=== PATIENT | female | born 1945 | race Caucasian/White ===

== ENCOUNTER 2016-07-05 08:53 | Emergency (ER) | payer OTHER ==
[~2016-07-05] VITALS: Ht 157.5 cm; Wt 88.3 kg
[~2016-07-05 08:53] MED LIST: CHOL100010 PO; HYDR12.56 PO; METO1TAB31 PO; PRAV20TA PO; PRLSR20 PO; PROM25TA9 PO
[2016-07-05 08:58] VITALS: TEMP 37.1; Ht 157.5 cm; Wt 88.3 kg
[2016-07-05] MEDS ORDERED: MoRPHine SULFATE 4 MG/ML 1 ML CARP\\VIAL IV STA (09:21)
[2016-07-05] MEDS ORDERED: PROMETHAZINE HCL INJ 12.5 MG in SODIUM CHLORIDE 0.9% 50ML 50 ML IV STA (09:21)
[2016-07-05] MEDS ORDERED: SODIUM CHLORIDE 0.9% 1000ML 1,000 ML IV STA (09:21)
[2016-07-05] MEDS ORDERED: CHOL20009 PO (09:23)
--- NOTE | 2016-07-05 09:41 | EMERGENCY ROOM VISIT NOTE ---
History Report prepared by Sheng: Marnie Sosa Under the Supervision of: Dr. Yulissa Perez M.D. First contact with patient: 09:11 Chief Complaint: KIDNEY STONE Stated Complaint: KIDNEY STONE,PRESSURE History of Present Illness The patient is a 70 year old female who presents to the Emergency Room with complaints of persistent right flank pain that began this morning about 6 hours ago. The pain woke her up from her sleep. She reports one episode of vomiting this morning. She is unsure if she had a fever. The patient has a history of kidney stones and states that her current pain feels similar to previous kidney stones. She has been seen by Dr. Doe in the past. The patient has a history of a cholecystectomy. Denies dysuria or other complaints. Source of History: patient Onset: 6 hours ago Position: other (right flank) Timing: other (persistent) Associated Symptoms: + vomiting Review of Systems See HPI for pertinent positives & negatives. A total of 10 systems reviewed and were otherwise negative. Past Medical & Surgical Medical Problems: (1) Calculus of kidney and ureter (2) Diverticulitis (3) History of adenomatous polyp of colon (4) HTN (hypertension) (5) s/p cholecystectomy (6) s/p colonoscopy (7) s/p L ureteroscopic laser lithotripsy + stent Family History FH: cancer FHx: gallbladder disease Hypertension Kidney stones Social History Smoking Status: Never Smoker Alcohol Use: none Drug Use: none Marital Status: Housing Status: lives with significant other Occupation Status: retired Current/Historical Medications Scheduled Cefdinir (Omnicef), 300 MG PO Q12H Cholecalciferol (Vitamin D), 2,000 UNITS PO DAILY Metoprolol Succinate (Toprol Xl), 25 MG PO BID Omeprazole (Prilosec), 20 MG PO DAILY Pravastatin (Pravachol ), 20 MG PO QPM Allergies Coded Allergies: PABA Derivatives (Verified Allergy, Unknown, IN SUNTAN LOTIONS, 02/03/16) Amoxicillin (Verified Adverse Reaction, Unknown, ABD CRAMPS., 02/03/16) get yeast infection if takes too high a dose. This is not a true allergy. Ondansetron (Verified Adverse Reaction, Unknown, ineffective, increased n/ v, 02/03/16) Physical Exam Vital Signs Date Time Temp Pulse Resp B/P Pulse Ox O2 Delivery O2 Flow Rate FiO2 3/17/17 14:03 93 18 146/101 98 Room Air 07/05/16 12:15 94 18 147/91 96 Room Air 07/05/16 10:55 85 18 153/87 94 Room Air 07/05/16 10:01 84 07/05/16 08:58 37.1 110 20 139/96 95 Room Air Physical Exam Vital signs reviewed. General: Elderly, generally well-appearing 70 year old female, in no significant distress. HEENT: No scleral icterus, PERRLA, neck supple. Atraumatic. Cardiovascular: Regular rate and rhythm, no extra sounds. Pulmonary: Clear to auscultation bilaterally, normal work of breathing. Abdomen: Soft, minimal right upper abdominal discomfort, no rebound, no guarding , nondistended, positive bowel sounds. Musculoskeletal: Atraumatic, no peripheral edema, right sided CVA tenderness. Neurologic: Patient awake alert and oriented x 3 Skin: Warm, dry, no rash Medical Decision & Procedures ER Provider Diagnostic Interpretation: Radiology results as stated below per my review and radiologist interpretation: RENAL ULTRASOUND CLINICAL HISTORY: Right flank pain. COMPARISON STUDY: CT of the abdomen and pelvis April 27, 2013 and renal ultrasound and KUB September 06, 2014. TECHNIQUE: Sonography of the kidneys and the urinary bladder was performed. FINDINGS: The right kidney measures 9.6 x 4.8 x 5.1 cm and the left measures 10.3 x 5.3 x 5.7 cm. There is no hydronephrosis. There are suspected small bilateral renal calculi. There is mild renal cortical thinning. Both ureteral jets were visualized. IMPRESSION: 1. No hydronephrosis. 2. Small bilateral renal calculi. Electronically signed by: Yogi Allison M.D. 07/05/2016 10:39 AM Dictated Date/Time: 07/05/2016 10:38 AM KUB CLINICAL HISTORY: Right flank pain. History of kidney stones. COMPARISON STUDY: KUB September 06, [address] of the abdomen and pelvis September. FINDINGS: There are small bilateral renal calculi. Pelvic calcifications are unchanged and likely reflect phleboliths and vascular calcifications. No ureteral calculi are identified. Bowel gas pattern is normal. There are cholecystectomy clips. IMPRESSION: Bilateral nephrolithiasis. No ureteral calculi identified. Electronically signed by: Yogi Allison M.D. 07/05/2016 10:49 AM Dictated Date/Time: 07/05/2016 10:45 AM Laboratory Results 07/05/16 09:15 Red Blood Count 5.01, Mean Corpuscular Volume 87.6, Mean Corpuscular Hemoglobin 30.5, Mean Corpuscular Hemoglobin Concent 34.9, Mean Platelet Volume 10.5, Neutrophils (%) (Auto) 78.2, Lymphocytes (%) (Auto) 14.2, Monocytes (%) (Auto) 6.5, Eosinophils (%) (Auto) 0.8, Basophils (%) (Auto) 0.2, Neutrophils # (Auto) 10.65, Lymphocytes # (Auto) 1.94, Monocytes # (Auto) 0.89, Eosinophils # (Auto) 0.11, Basophils # (Auto) 0.03 07/05/16 09:15 Test 07/05/16 09:06 07/05/16 09:15 Urine Color YELLOW Urine Appearance CLEAR (CLEAR) Urine pH 7.0 (4.5-7.5) Urine Specific [place] 1.012 (1.000-1.030) Urine Protein NEG (NEG) Urine Glucose (UA) NEG (NEG) Urine Ketones NEG (NEG) Urine Occult Blood 3+ (NEG) Urine Nitrite POS (NEG) Urine Bilirubin NEG (NEG) Urine Urobilinogen NEG (NEG) Urine Leukocyte Esterase MODERATE (NEG) Urine WBC (Auto) 10-30 /hpf (0-5) Urine RBC (Auto) 10-30 /hpf (0-4) Urine Hyaline Casts (Auto) 1-5 /lpf (0-5) Urine Epithelial Cells (Auto) >30 /lpf (0-5) Urine Bacteria (Auto) 4+ (NEG) White Blood Count 13.64 K/uL (4.8-10.8) Red Blood Count 5.01 M/uL (4.2-5.4) Hemoglobin 15.3 g/dL (12.0-16.0) Hematocrit 43.9 % (37-47) Mean Corpuscular Volume 87.6 fL (80-100) Mean Corpuscular Hemoglobin 30.5 pg (25-34) Mean Corpuscular Hemoglobin Concent 34.9 g/dl (32-36) Platelet Count 218 K/uL (130-400) Mean Platelet Volume 10.5 fL (7.4-10.4) Neutrophils (%) (Auto) 78.2 % Lymphocytes (%) (Auto) 14.2 % Monocytes (%) (Auto) 6.5 % Eosinophils (%) (Auto) 0.8 % Basophils (%) (Auto) 0.2 % Neutrophils # (Auto) 10.65 K/uL (1.4-6.5) Lymphocytes # (Auto) 1.94 K/uL (1.2-3.4) Monocytes # (Auto) 0.89 K/uL (0.11-0.59) Eosinophils # (Auto) 0.11 K/uL (0-0.5) Basophils # (Auto) 0.03 K/uL (0-0.2) RDW Standard Deviation 45.5 fL (36.4-46.3) RDW Coefficient of Variation 14.2 % (11.5-14.5) Immature Granulocyte % (Auto) 0.1 % Immature Granulocyte # (Auto) 0.02 K/uL (0.00-0.02) Anion Gap 10.0 mmol/L (3-11) Est Creatinine Clear Calc Drug Dose 63.7 ml/min Estimated GFR () 79.9 Estimated GFR (Non- 68.9 BUN/Creatinine Ratio 13.0 (10-20) Calcium Level 9.3 mg/dl (8.5-10.1) Total Bilirubin 0.9 mg/dl (0.2-1) Direct Bilirubin 0.1 mg/dl (0-0.2) Aspartate Amino Transf (AST/SGOT) 17 U/L (15-37) Alanine Aminotransferase (ALT/SGPT) 26 U/L (12-78) Alkaline Phosphatase 103 U/L (45-117) Total Protein 7.7 gm/dl (6.4-8.2) Albumin 3.7 gm/dl (3.4-5.0) Laboratory results per my review. Medications Administered Medications (Trade) Dose Ordered Sig/Sadie Route Start Time Stop Time Status Last Admin Dose Admin Promethazine HCl/ Sodium Chloride (Phenergan Inj/ Nss 50ml) 50.5 ml @ 204 mls/hr NOW STAT IV 07/05/16 09:21 07/05/16 09:35 DC 07/05/16 09:38 204 MLS/HR Morphine Sulfate 4 mg 4 mg NOW STAT IV 07/05/16 09:21 07/05/16 09:22 DC 07/05/16 09:38 4 MG Sodium Chloride (Nss 1000ml) 1,000 ml @ 150 mls/hr Q6H40M STAT IV 07/05/16 09:21 07/05/16 16:00 DC 07/05/16 09:38 150 MLS/HR Ceftriaxone Sodium (Rocephin Inj) 1 gm NOW STAT IV 07/05/16 11:10 07/05/16 11:12 DC 07/05/16 11:43 1 GM ED Course 0914: Past medical records reviewed. The patient was evaluated in room A12. A complete history and physical examination was performed. 0921: Ordered NSS 1000 ml @ 150 mls/hr IV, Morphine Sulfate 4 mg IV, Promethazine HCl 12.5 mg/NSS 50.5 ml @ 204 mls/hr IV. 1110: Ordered Rocephin Inj 1 gm IV. 1250: Upon reevaluation, the patient appeared to have improvement of her symptoms. I discussed findings with the patient. She verbalized agreement of the treatment plan. The patient was discharged home. Medical Decision Differential diagnosis: Etiologies such as renal colic, appendicitis, diverticulitis, mesenteric ischemia, aortic pathology, infections, inflammatory bowel disease, PUD, biliary pathology, UTI, as well as others were entertained. This patient was evaluated and appeared to be in no significant distress. IV access was obtained and laboratory work was drawn. The patient was placed on the assistant softball coach and found to be in a normal sinus rhythm. KUB and ultrasound were performed. The findings are as above. There is no evidence of renal calculus, urinalysis is concerning for infection. Patient is likely suffering from a pyelonephritis. She was given 1 g of IV ceftriaxone. The patient will be continued on Omnicef 300 mg twice daily for 7 days. She will follow-up with her physician this week for reevaluation and return to the ER for worsening of symptoms or any medical concerns. Impression Primary Impression: Pyelonephritis Scribe Attestation The scribe's documentation has been prepared under my direction and personally reviewed by me in its entirety. I confirm that the note above accurately reflects all work, treatment, procedures, and medical decision making performed by me. Departure Information Dispostion Home / Self-Care Prescriptions Cefdinir (Omnicef) 300 Mg Cap 300 MG PO Q12H for 10 Days, #20 CAP Prov: Yulissa Perez M.D. 07/05/16 Referrals Freddy Whitney M.D.([facility]) (PCP) Patient Instructions My [facility] Additional Instructions Diagnosis: Pyelonephritis Omnicef 300 mg twice daily for 10 days. Tylenol 650 mg every 6 hours as needed for pain or fever. Ibuprofen 600 mg every 6 hours as needed for pain or fever. Drink plenty of clear fluids. Return to the ER for worsening symptoms or any medical concerns.
[2016-07-05 09:42] LABS: BASO % 0.2 %; BASO ABS # 0.03 K/uL (0-0.2); COMPLETE YES; EOS % 0.8 %; HEMATOCRIT 43.9 % (37-47); IG% 0.1 %; LYMPH % 14.2 %; LYMPH ABS # 1.94 K/uL (1.2-3.4); MEAN CELL VOLUME 87.6 fL (80-100); MEAN CORPUSCULAR HEMOGLOBIN 30.5 pg (25-34); MEAN CORPUSCULAR HGB CONC 34.9 g/dl (32-36); MEAN PLATELET VOLUME 10.5 fL (7.4-10.4); MONO % 6.5 %; NEUT % 78.2 %; PLATELET COUNT 218 K/uL (130-400); RED BLOOD COUNT 5.01 M/uL (4.2-5.4); WHITE BLOOD COUNT 13.64 K/uL (4.8-10.8)
[2016-07-05 09:53] LABS: URINE APPEARANCE CLEAR (CLEAR); URINE BILIRUBIN NEG (NEG); URINE COLOR YELLOW; URINE EPITHELIAL CELL AUTO >30 /lpf (0-5); URINE NITRITE POS (NEG); URINE SPECIFIC GRAVITY 1.012 (1.000-1.030); UROBILINOGEN NEG (NEG); ZZUR CULT IF INDIC CLEAN CATCH YES
[2016-07-05 09:57] LABS: MANUAL MICROSCOPIC REQUIRED? NO; REVIEW REQ? NO
[2016-07-05 09:59] LABS: CALCIUM 9.3 mg/dl (8.5-10.1); CREATININE 0.86 mg/dl (0.60-1.20); POTASSIUM 3.7 mmol/L (3.5-5.1)
--- NOTE | 2016-07-05 10:40 | DIAGNOSTIC IMAGING REPORT ---
RENAL ULTRASOUND CLINICAL HISTORY: Right flank pain. COMPARISON STUDY: CT of the abdomen and pelvis April 27, 2013 and renal ultrasound and KUB September 06, 2014. TECHNIQUE: Sonography of the kidneys and the urinary bladder was performed. FINDINGS: The right kidney measures 9.6 x 4.8 x 5.1 cm and the left measures 10.3 x 5.3 x 5.7 cm. There is no hydronephrosis. There are suspected small bilateral renal calculi. There is mild renal cortical thinning. Both ureteral jets were visualized. IMPRESSION: 1. No hydronephrosis. 2. Small bilateral renal calculi. Electronically signed by: Yogi Allison M.D. 07/05/2016 10:39 AM Dictated Date/Time: 07/05/2016 10:38 AM
--- NOTE | 2016-07-05 10:50 | DIAGNOSTIC IMAGING REPORT ---
KUB CLINICAL HISTORY: Right flank pain. History of kidney stones. COMPARISON STUDY: KUB September 06, [address] of the abdomen and pelvis September. FINDINGS: There are small bilateral renal calculi. Pelvic calcifications are unchanged and likely reflect phleboliths and vascular calcifications. No ureteral calculi are identified. Bowel gas pattern is normal. There are cholecystectomy clips. IMPRESSION: Bilateral nephrolithiasis. No ureteral calculi identified. Electronically signed by: Yogi Allison M.D. 07/05/2016 10:49 AM Dictated Date/Time: 07/05/2016 10:45 AM
[2016-07-05] MEDS ORDERED: CEFTRIAXONE SOD INJ 1 GM ADDVIAL IV STA (11:10)
[2016-07-05] MEDS ORDERED: CEFD1CAP14 PO (13:00)
[2016-07-05 14:03] VITALS: BP 146/101; PULSE 93; O2SAT 98
== END 2016-07-05 14:15 | disposition home or self-care (01) ==
LOC: C.EDB 08:55 → C.EDA 14:15
DX: N12 Tubulo-interstitial nephritis, not specified as acute or chronic (principal); Z87.442 Personal history of urinary calculi; K57.92 Diverticulitis of intestine, part unspecified, without perforation or abscess without bleeding; Z86.010 Personal history of colon polyps; I10 Essential (primary) hypertension; Z80.9 Family history of malignant neoplasm, unspecified; Z83.79 Family history of other diseases of the digestive system; Z82.49 Family history of ischemic heart disease and other diseases of the circulatory system; Z84.1 Family history of disorders of kidney and ureter; Z79.899 Other long term (current) drug therapy

== ENCOUNTER 2018-12-04 12:00 | Inpatient (IN) ==
[2018-12-04] MEDS ORDERED: MoRPHine SULFATE 4 MG/ML 1 ML CARP\\VIAL IV PRN (12:48)
[2018-12-04 12:57] LABS: Basophils # (auto) 0.02 K/uL (0-0.2); Basophils % (auto) 0.2 %; Eosinophils # (auto) 0.04 K/uL (0-0.5); Eosinophils % (auto) 0.5 %; Hematocrit (blood only) 42.6 % (37-47); Hemoglobin 14.5 g/dL (12.0-16.0); Immature Granulocytes # (auto) 0.04 K/uL (0.00-0.02); Immature Granulocytes % (auto) 0.5 %; Lymphocytes # (auto) 1.53 K/uL (1.2-3.4); Lymphocytes % (auto) 17.7 %; Mean Corpuscular Volume 86.4 fL (80-100); Mean Platelet Volume 10.4 fL (7.4-10.4); Monocytes # (auto) 0.41 K/uL (0.11-0.59); Monocytes % (auto) 4.7 %; Neutrophils # (auto) 6.61 K/uL (1.4-6.5); Neutrophils % (auto) 76.4 %; Platelet Count 206 K/uL (130-400); RDW Coefficient of Variation 13.8 % (11.5-14.5); RDW Standard Deviation 43.4 fL (36.4-46.3); Red Blood Count 4.93 M/uL (4.2-5.4); White Blood Count 8.65 K/uL (4.8-10.8)
[2018-12-04] MEDS ORDERED: PATIENT'S HEIGHT AND/OR WEIGHT NEEDED SCH (13:00)
[2018-12-04 13:07] LABS: Prothrombin Time 10.4 Seconds (9.0-12.0)
[2018-12-04 13:18] LABS: Albumin Level 3.5 gm/dl (3.4-5.0); Creatinine Clr Calc Pharmacy 59.7 ml/min; Est GFR (African American) 68.1; Est GFR (Non-African American) 58.8; Potassium 3.3 mmol/L (3.5-5.1)
[2018-12-04 13:21] LABS: Albumin Globulin Ratio 0.9 (0.9-2); Bilirubin,Total 0.7 mg/dl (0.2-1); Phosphorus 1.7 mg/dl (2.5-4.9); Total Protein 7.5 gm/dl (6.4-8.2)
[2018-12-04] MEDS ORDERED: POTASSIUM PHOS 3 MMOL/1 ML INFUSION IV STA (13:24)
[2018-12-04] MEDS ORDERED: NYSTATIN/TRIAMCIN CR 15 GM TUBE EXT PRN (13:38)
[2018-12-04] MEDS: PROCHLORPERAZINE 5 MG in SYRINGE 4 ML IV PRN (13:48)
[2018-12-04] MEDS: ENOXAPARIN INJ 40 MG/0.4 ML SYR SQ SCH (13:50)
[2018-12-04] MEDS: CIPROFLOXACIN 400 MG/200 ML BAG IV SCH (13:58)
[2018-12-04] MEDS: metroNIDAZOLE 500 MG/100 ML BAG IV SCH ×2 (13:58→21:45)
[2018-12-04] MEDS ORDERED: POTASSIUM PHOSPHATE IV ONE (14:00)
[2018-12-04] MEDS ORDERED: SODIUM CHLORIDE 0.9% IV ONE (14:00)
[2018-12-04] MEDS ORDERED: POTASSIUM CHLORIDE 20 MEQ TABCR PO ONE (14:00)
--- NOTE | 2018-12-04 15:13 | History & Physical Report ---
Date of Service December 04, 2018 Assessment & Plan (1) Diverticulitis: -Patient directly admitted to [facility] from PCPs office -Was seen in the ED on 12/02 and diagnosed with acute sigmoid diverticulitis; was discharged home on oral Cipro and Flagyl, pain medication, nausea medication -Patient presented to PCP today with reports of intractable nausea and vomiting -History of diverticulitis in the past in 2013, 10/2017 -Colonoscopy 12/2017-diverticulosis in the sigmoid colon -will place patient on IV Cipro and Flagyl -Currently afebrile, no leukocytosis; does not appear septic -Patient reports abdominal pain has been improving and given that she is afebrile without leukocytosis, will hold on repeating CT scan for now -Continue supportive care with IVF, PRN pain and nausea medications -Follow-up outpatient colonoscopy in 6 to 8 weeks (discussed with EVERTON Polk who will arrange) (2) Hypokalemia: (3) Hypophosphatemia: -K+ 3.3, phosphorus 1.7 -Likely due to GI losses -Replace, follow electrolytes (4) HTN (hypertension): -BP mildly elevated, likely situational and due to missed a.m. medications -Continue home dose of metoprolol, making adjustments as needed (5) Dyslipidemia: -Continue statin (6) GERD (gastroesophageal reflux disease): -Continue PPI (7) DVT prophylaxis: -SQ Lovenox History of Present Illness Chief Complaint: Abdominal pain, nausea, vomiting Primary Care Provider: Gustavo Ding MD 72-year-old female who was sent as a direct admission by referral of her PCPs office for evaluation of abdominal pain, nausea, vomiting. Patient was seen in the ED on 12/02 and diagnosed with uncomplicated acute sigmoid diverticulitis. Patient was discharged home on oral Flagyl, Cipro, Phenergan, oxycodone. Patient reports that since returning home, she has had persistent nausea and vomiting. She reports several episodes of vomiting last evening. She denies any hematemesis or coffee-ground emesis. Left lower quadrant pain has actually improved. Patient reports she had chills and rigors however did not take her temperature. She denies chest pain shortness of breath. No lightheadedness, dizziness, diaphoresis, syncopal events. She denies any urinary symptoms. When patient presented to her PCPs office today, she reports that in the past when she has had diverticulitis she has required inpatient treatment. Given the persistent nausea and vomiting, patient was referred for direct admission. At the time my exam, patient is resting in bed in no acute distress. Allergies Allergy/AdvReac Type Severity Reaction Status Date / Time metoclopramide AdvReac Severe Back Pain Verified 12/02/18 05:24 amoxicillin AdvReac Intermediate ABD CRAMPS. Verified 12/02/18 05:24 ondansetron AdvReac Mild ineffective, Verified 12/02/18 05:24 increased n/v PABA Derivatives Allergy Intermediate FACIAL Uncoded 12/02/18 05:24 SWELLING Home Medications Home Medications Medication Instructions Recorded Confirmed Type cholecalciferol (vitamin D3) 2,000 unit PO QAM 07/31/18 12/04/18 History [Vitamin D3] lorazepam 0.5 mg PO UD PRN 07/31/18 12/04/18 History metoprolol succinate 25 mg PO BID 07/31/18 12/04/18 History omeprazole 20 mg PO QAM 07/31/18 12/04/18 History pravastatin 20 mg PO HS 07/31/18 12/04/18 History ciprofloxacin HCl [Cipro] 500 mg PO BID #20 tab 12/02/18 12/04/18 Rx metronidazole [Flagyl] 500 mg PO TID #30 tab 12/02/18 12/04/18 Rx oxycodone 5 mg PO Q6H PRN #12 tab 12/02/18 12/04/18 Rx promethazine 25 mg PO Q6H PRN #20 tab 12/02/18 12/04/18 Rx meclizine 25 mg PO DAILY PRN 12/04/18 12/04/18 History nystatin-triamcinolone 1 applic TOPICAL BID PRN 12/04/18 12/04/18 History Past Med/Surg History Medical History Diverticulosis (Chronic) BPPV (benign paroxysmal positional vertigo) (Chronic) GERD (gastroesophageal reflux disease) (Chronic) Dyslipidemia (Chronic) HTN (hypertension) (Chronic) Osteoporosis (Chronic) History of kidney stones (Chronic) "S/p multiple stents, most recently left ureteral stent placement in August 2017" Surgical History S/P cholecystectomy (Resolved Unknown) Family History Father Pancreatic cancer Social History Preferred Language: Kosovan Communication Ability: Effective Woods Overseer Required: No Beliefs That Will Affect Care: None Current Living Situation: Spouse Other Information That Helps Us Care for You: No Feels Safe at Home: Yes Safety Concerns: Feels Safe At This Time Smoking Status: Never smoker Second Hand Exposure: No ; Hx Alcohol Use: No Hx Substance Use: No Review of Systems Review of Systems: ROS per HPI, all other systems reviewed and negative Physical Exam Constitutional: WD/WN, vitals as above Eyes: PERRL, conjunctivae normal, anicteric sclerae ENMT: external ear and nose normal, oropharynx normal Respiratory: normal respiratory effort, lungs clear to auscultation Cardiovascular: Rate/Rhythm: regular rate and regular rhythm Vessels: normal peripheral pulses Extremities: no edema Gastrointestinal (Abdomen): Inspection/Auscultation: normal bowel sounds; abdomen not distended Percussion/Palpation: + abdomen tender (LLQ) and abdomen soft; no hepatosplenomegaly Musculoskeletal: no cyanosis or clubbing, extremities motor strength 5/5 Skin: no rashes, warm and dry Neurologic: PERRL, EOMI, accommodation nl, no face palsy, no dysarthria Psychiatric: A+Ox3, euthymic affect Results & Data Vital Signs (Past 12 Hours) Vital Signs Temp Pulse Resp BP Pulse Ox 12/04/18 12:33 36.7 C 99 H 16 164/93 H 93 Laboratory Results Short CBC 12/04/18 Range/Units 12:37 WBC 8.65 (4.8-10.8) K/uL Hgb 14.5 (12.0-16.0) g/dL Hct 42.6 (37-47) % Plt Count 206 (130-400) K/uL BMP 12/04/18 12:37 Sodium 141 Potassium 3.3 L Chloride 108 H Carbon Dioxide 26 BUN 9 Creatinine 0.97 Glucose 112 H Calcium 9.0 Liver Function 12/04/18 Range/Units 12:37 Total Bilirubin 0.7 (0.2-1) mg/dl AST 17 (15-37) U/L ALT 21 (12-78) U/L Alkaline Phosphatase 98 (45-117) U/L Albumin 3.5 (3.4-5.0) gm/dl Diagnostic Findings CT ABD/PELVIS IMPRESSION (12/02/2018): 1. Acute diverticulitis at the descending sigmoid colonic junction 2. No evidence of bowel obstruction. No evidence of free air 3. Bilateral nephrolithiasis. No ureteral calculi identified. 4. Droplet of gas in the bladder, possibly iatrogenic. Please correlate with any history of recent instrumentation. Code Status & VTE Plan VTE Prophylaxis Plan VTE Prophylaxis will be ordered: Yes Supervising Physician Co-Signing Physician Notes Attending addendum: The patient was seen and examined in medical floor She is here with failed outpatient treatment for acute diverticulitis Repeat CT of the abdomen did show diverticulitis involving the descending and sigmoid colon junction, no evidence of abscess He has been feeling better today and she tolerated Denies any fever and On examination Lying in bed comfortably Hemodynamically stable with blood pressure on the upper side systolic 152 diastolic 88 Chest-clear to auscultate bilaterally Heart-S1-S2, regular Abdomen-soft, tender left lower quadrant, no guarding and rigidity, mostly present Extremities-negative for any edema Admission labs and imaging studies reviewed Has acute diverticulitis Has been started on intravenous Cipro and Flagyl Agree with assessment as outlined above by Aggie Sykes
[2018-12-04] MEDS: OXYCODONE HCL IR 5 MG TAB (IMMEDIATE RELEASE) PO PRN (15:36)
[2018-12-04] MEDS: METOPROLOL SUCC 25MG EXT REL TAB PO SCH (20:05)
[2018-12-04] MEDS: PRAVASTATIN SOD 20 MG TAB PO SCH (20:48)
[2018-12-04] MEDS: SODIUM CHLORIDE 0.9% 1000ML 1,000 ML IV SCH (21:43)
[2018-12-05] MEDS: ACETAMINOPHEN 325 MG TAB PO PRN ×2 (01:44→17:35)
[2018-12-05] MEDS: CIPROFLOXACIN 400 MG/200 ML BAG IV SCH ×2 (03:00→14:20)
[2018-12-05] MEDS: metroNIDAZOLE 500 MG/100 ML BAG IV SCH ×2 (05:13→14:14)
[2018-12-05 06:17] LABS: Hematocrit (blood only) 35.7 % (37-47); Mean Corpuscular Hgb Conc 33.6 g/dL (32-36); Mean Corpuscular Volume 87.9 fL (80-100); Mean Platelet Volume 10.5 fL (7.4-10.4); Platelet Count 196 K/uL (130-400); RDW Coefficient of Variation 14.1 % (11.5-14.5); RDW Standard Deviation 45.7 fL (36.4-46.3); Red Blood Count 4.06 M/uL (4.2-5.4); White Blood Count 7.21 K/uL (4.8-10.8)
[2018-12-05 06:57] LABS: BUN Creatinine Ratio 9.5 (10-20); Calcium 7.8 mg/dl (8.5-10.1); Creatinine Clr Calc Pharmacy 68.1 ml/min; Est GFR (African American) 79.9; Est GFR (Non-African American) 68.9; Magnesium 1.9 mg/dl (1.8-2.4); Potassium 3.4 mmol/L (3.5-5.1)
[2018-12-05 06:59] LABS: Phosphorus 2.7 mg/dl (2.5-4.9)
[2018-12-05] MEDS: METOPROLOL SUCC 25MG EXT REL TAB PO SCH ×2 (09:23→21:19)
[2018-12-05] MEDS: PANTOprazole 40 MG TAB PO SCH (09:23)
[2018-12-05] MEDS: CHOLECALCIFEROL 1,000 UNITS TAB PO SCH (09:23)
[2018-12-05] MEDS ORDERED: POTASSIUM CHLORIDE 20 MEQ TABCR PO STA (13:50)
[2018-12-05] MEDS: SODIUM CHLORIDE 0.9% 1000ML 1,000 ML IV SCH (14:22)
[2018-12-05] MEDS: ENOXAPARIN INJ 40 MG/0.4 ML SYR SQ SCH (14:23)
--- NOTE | 2018-12-05 15:26 | Hospitalist Progress Note ---
Date of Service December 05, 2018 Assessment & Plan (1) Diverticulitis: Patient directly admitted to [facility] from PCPs office -Was seen in the ED on 12/02 and diagnosed with acute sigmoid diverticulitis; was discharged home on oral Cipro and Flagyl, pain medication, nausea medication. Presented to PCP office with intractable nausea and vomiting, unable to tolerate p.o. antibiotics orally. -History of diverticulitis in the past in 2013, 10/2017. Colonoscopy 12/2017- diverticulosis in the sigmoid colon Clinically improving- Abd pain has improved, no fever, nausea, vomiting, no leucocytosis -Receiving IV Cipro and Flagyl --> Change to PO as able to tolerate -Advance diet to low fibre diet today -Currently afebrile, no leukocytosis; does not appear septic -Supportive care -Follow-up outpatient colonoscopy in 6 to 8 weeks (discussed with EVERTON Polk who will arrange) (2) Hypokalemia: (3) Hypophosphatemia: Resolved -Likely due to GI losses -Monitor (4) HTN (hypertension): -Continue home dose of metoprolol, making adjustments as needed (5) Dyslipidemia: -Continue statin (6) GERD (gastroesophageal reflux disease): -Continue PPI (7) DVT prophylaxis: -SQ Lovenox Disposition Likely discharge in AM if continues to feel better Subjective Patient is feeling much better today. Left abdominal pain has improved. No nausea, vomiting since admission. No bowel movement since admission. Eager to have more food. Tolerating clear liquids well. Physical Exam Physical Exam: GENERAL- AAOX3, No acute distress NECK- Supple, no JVD LUNGS- Air entry bilaterally equal. No rales, rhonchi, crackles, wheezes heard. HEART- Regular rate and rhythm. No murmurs ABDOMEN- Soft, non tender, non distended, Bowel sounds heard. EXTREMITIES- Good peripheral pulses, no edema Results & Data Vital Signs (Past 12 Hours) Vital Signs Temp Pulse Resp BP Pulse Ox 12/05/18 14:53 36.9 C 69 18 140/84 94 12/05/18 08:55 36.4 C L 77 18 137/82 96
[2018-12-05] MEDS: PRAVASTATIN SOD 20 MG TAB PO SCH (21:19)
[2018-12-05] MEDS: metroNIDAZOLE 500 MG TAB PO SCH (21:19)
[2018-12-05] MEDS: PROCHLORPERAZINE 5 MG in SYRINGE 4 ML IV PRN (21:34)
[2018-12-05] MEDS: CIPROFLOXACIN 500 MG TAB PO SCH (23:09)
[2018-12-06] MEDS: SODIUM CHLORIDE 0.9% 1000ML 1,000 ML IV SCH ×2 (03:18→11:49)
[2018-12-06] MEDS: PROCHLORPERAZINE 5 MG in SYRINGE 4 ML IV PRN (03:40)
[2018-12-06] MEDS: OXYCODONE HCL IR 5 MG TAB (IMMEDIATE RELEASE) PO PRN (06:11)
[2018-12-06] MEDS: METOPROLOL SUCC 25MG EXT REL TAB PO SCH (07:41)
[2018-12-06] MEDS: CIPROFLOXACIN 500 MG TAB PO SCH (07:41)
[2018-12-06] MEDS: PANTOprazole 40 MG TAB PO SCH (07:41)
[2018-12-06] MEDS: metroNIDAZOLE 500 MG TAB PO SCH ×2 (07:41→14:42)
[2018-12-06] MEDS: CHOLECALCIFEROL 1,000 UNITS TAB PO SCH (07:42)
[2018-12-06] MEDS ORDERED: LORazepam 0.5 MG TAB PO PRN (08:14)
[2018-12-06 08:27] LABS: Calcium 8.3 mg/dl (8.5-10.1); Creatinine Clr Calc Pharmacy 71.5 ml/min; Est GFR (African American) 84.7; Est GFR (Non-African American) 73.1; Potassium 3.6 mmol/L (3.5-5.1)
--- NOTE | 2018-12-06 10:27 | Hospitalist Progress Note ---
Date of Service December 06, 2018 Assessment & Plan (1) Diverticulitis: Patient directly admitted to Med Surg from PCP's office -Was seen in the ED on 12/02 and diagnosed with Acute sigmoid diverticulitis; was discharged home on oral Cipro and Flagyl, pain medication, nausea medication. Presented to PCP office with intractable nausea and vomiting, unable to tolerate p.o. antibiotics orally. -History of diverticulitis in the past in 2013, 10/2017. Colonoscopy 12/2017- diverticulosis in the sigmoid colon Clinically improving- Abd pain has improved, but still has some nausea, small emesis in AM. No fever, no leucocytosis. -IV antibiotics changed to PO Cipro/Flagyl on 12/05/2018 -Discontinue IV Fluids -Diet - Low fibre- tolerated yest, but today hesitant to take due to nausea -Currently afebrile, no leukocytosis; does not appear septic -Supportive care -Follow-up outpatient colonoscopy in 6 to 8 weeks (discussed with EVERTON Polk who will arrange) (2) Hypokalemia: (3) Hypophosphatemia: Resolved -Likely due to GI losses -Monitor (4) HTN (hypertension): -Continue home dose of metoprolol, making adjustments as needed (5) Dyslipidemia: -Continue statin (6) GERD (gastroesophageal reflux disease): -Continue PPI (7) DVT prophylaxis: -SQ Lovenox Disposition May consider discharge if tolerates lunch and feeling better. Subjective Patient still feels nauseous and had a small episode of emesis today morning. Abdominal pain has improved, still has some left flank and lower left abdominal pain. Did have a bowel movement yesterday and today. Tolerated regular food yesterday afternoon but decreased appetite. Skipped today's breakfast. Physical Exam Physical Exam: GENERAL- AAOX3, No acute distress LUNGS- Air entry bilaterally equal. No rales, rhonchi, crackles, wheezes heard. HEART- Regular rate and rhythm. No murmurs ABDOMEN- Soft, non tender, non distended, Bowel sounds heard. EXTREMITIES- Good peripheral pulses, no edema Results & Data Vital Signs (Past 12 Hours) Vital Signs Temp Pulse Resp BP BP Pulse Ox 12/06/18 07:43 36.6 C 67 17 160/85 H 93 12/05/18 23:40 36.6 C 80 18 139/87 93
--- NOTE | 2018-12-06 14:39 | Discharge Summary ---
Date of Service December 06, 2018 Admission HPI Per Admitting Provider 72-year-old female who was sent as a direct admission by referral of her PCPs office for evaluation of abdominal pain, nausea, vomiting. Patient was seen in the ED on 12/02 and diagnosed with uncomplicated acute sigmoid diverticulitis. Patient was discharged home on oral Flagyl, Cipro, Phenergan, oxycodone. Patient reports that since returning home, she has had persistent nausea and vomiting. She reports several episodes of vomiting last evening. She denies any hematemesis or coffee-ground emesis. Left lower quadrant pain has actually improved. Patient reports she had chills and rigors however did not take her temperature. She denies chest pain shortness of breath. No lightheadedness, dizziness, diaphoresis, syncopal events. She denies any urinary symptoms. When patient presented to her PCPs office today, she reports that in the past when she has had diverticulitis she has required inpatient treatment. Given the persistent nausea and vomiting, patient was referred for direct admission. At the time my exam, patient is resting in bed in no acute distress. Principal Diagnosis 1. Acute diverticulitis 2. Hypokalemia 3. Hypophosphatemia Secondary diagnoses on discharge 1. Hypertension 2. Dyslipidemia 3. GERD Discharge Exam GENERAL- AAOX3, No acute distress LUNGS- Air entry bilaterally equal. No rales, rhonchi, crackles, wheezes heard. HEART- Regular rate and rhythm. No murmurs ABDOMEN- Soft, non tender, non distended, Bowel sounds heard. EXTREMITIES- Good peripheral pulses, no edema Discharge Data Allergies Allergy/AdvReac Type Severity Reaction Status Date / Time metoclopramide AdvReac Severe Back Pain Verified 12/02/18 05:24 amoxicillin AdvReac Intermediate ABD CRAMPS. Verified 12/02/18 05:24 ondansetron AdvReac Mild ineffective, Verified 12/02/18 05:24 increased n/v PABA Derivatives Allergy Intermediate FACIAL Uncoded 12/02/18 05:24 SWELLING Hospital Course (1) Diverticulitis: Patient directly admitted to Med Surg from PCP's office -Was seen in the ED on 12/02 and diagnosed with Acute sigmoid diverticulitis; was discharged home on oral Cipro and Flagyl, pain medication, nausea medication. Presented to PCP office with intractable nausea and vomiting, unable to tolerate p.o. antibiotics orally. -History of diverticulitis in the past in 2013, 10/2017. Colonoscopy 12/2017 - diverticulosis in the sigmoid colon Clinically improved - Abd pain has resolved, tolerated PO diet today afternoon and yesterday. Afebrile, no leucocytosis, no signs of sepsis -IV antibiotics changed to PO Cipro/Flagyl on 12/05/2018 - Day 05/31 -S/P IVF -Follow-up outpatient colonoscopy in 6 to 8 weeks (discussed with EVERTON Polk who will arrange) (2) Hypokalemia: (3) Hypophosphatemia: Resolved -Likely due to GI losses (4) HTN (hypertension): -Continue home dose of metoprolol, making adjustments as needed (5) Dyslipidemia: -Continue statin (6) GERD (gastroesophageal reflux disease): -Continue PPI (7) DVT prophylaxis: -SQ Lovenox Disposition Eager to be discharged home OK to discharge home today Total Time Total Time Spent Total Time Spent (In Minutes): 38 minutes Discharge Plan Discharge Items Patient Disposition: Home - Self-Care Reason For Visit: DIVERTICULITIS Discharge Diagnosis: Acute diverticulitis Discharge Goals: Decrease discomfort Activity: Resume your previous activity Non-emergency contact: Primary Care Provider Call non-emergency contact if: your symptoms worsen Follow-up/Referrals: Gustavo Ding MD [Primary Care Provider] - (Will call you for hospital follow up within 7 days ) Diet: Low Fiber and Low Sodium (2gm) Addtl Provider Instructions: You were admitted to the hospital for acute diverticulitis. MEDICATION CHANGES : New medicationsciprofloxacin 500 mg p.o. twice a day and metronidazole 500 mg 3 times a day for 8 more days to complete course of 10 days of antibiotics for diverticulitis Recommend outpatient colonoscopy in 6 to 8 weeks Prescriptions: Continued meclizine 25 mg Tablet 25 mg PO DAILY PRN (Reason: Dizziness) RF: 0 nystatin-triamcinolone 100,000-0.1 unit/g-% cream 1 applic topical BID PRN (Reason: Itching) RF: 0 lorazepam 0.5 mg Tablet 0.5 mg PO UD PRN (Reason: FLYING OR TRAVELING OR ANXIOUS) RF: 0 omeprazole 20 mg Capsule,Delayed Release(Dr/Ec) 20 mg PO QAM RF: 0 pravastatin 20 mg Tablet 20 mg PO HS RF: 0 metoprolol succinate 25 mg Tablet Extended Release 24 Hr 25 mg PO BID RF: 0 cholecalciferol (vitamin D3) [Vitamin D3] 2,000 unit Tablet 2,000 unit PO QAM RF: 0 ciprofloxacin HCl [Cipro] 500 mg tablet 500 mg PO BID Qty: 20 RF: 0 metronidazole [Flagyl] 500 mg tablet 500 mg PO TID Qty: 30 RF: 0 promethazine 25 mg tablet 25 mg PO Q6H PRN (Reason: sedation) Qty: 20 RF: 0 oxycodone 5 mg tablet 5 mg PO Q6H PRN (Reason: pain) Qty: 12 RF: 0 Stand-Alone Forms: [facility]charge Orders: Discharge Order (Routine); Ordered 12/06/18 Ordered By: Neeta Edward Admission Data Admit Date/Time: 12/04/18 12:09 Attending Provider: Neeta Edward Admit Provider: Khris Sykes Primary Care Provider: Gustavo Ding Service: Medical
[2018-12-06] MEDS: ENOXAPARIN INJ 40 MG/0.4 ML SYR SQ SCH (14:42)
== END 2018-12-06 16:15 | disposition home or self-care (01) | DRG 392 ==
LOC: SUATTDRO 12:09 → 3W 12:09